=== PATIENT | male | born 1965 | race Caucasian/White ===

== ENCOUNTER 2021-05-26 06:23 | Emergency (ER) | payer SELFPAY ==
--- NOTE | ~2021-05-26 | CT_ITS ---
EXAMINATION: CT FEMUR WITHOUT CONTRAST, RIGHT CLINICAL INFORMATION: Pain. Evaluate quadriceps. COMPARISON: None TECHNIQUE: Contiguous axial CT images of the right femur were obtained without contrast. Multiplanar reformats were provided and reviewed. This CT examination was performed using dose optimization techniques as appropriate, variously including the following: *Automated exposure control *Adjustment of mA and/or kV according to patient size (this includes techniques or standardized protocols for targeted exams where dose is matched to indication/reason for exam; i.e. extremities or head) *Use of iterative reconstruction technique DLP: 453 mGy-cm FINDINGS: Evaluation of the muscles and tendons is somewhat limited on CT examination. There is diffuse irregularity of the distal quadriceps tendon with areas of distal attenuation. Findings are consistent with high-grade partial tearing of the distal quadriceps tendon with a tendon gap measuring up to 2.3 cm in craniocaudal dimension. There is a tiny osseous fragment in this region, which may represent a tiny avulsion. There is mild adjacent soft tissue edema. The patellar tendon appears intact. The more proximal muscles and tendons are grossly intact on CT examination. Mild lateral patellofemoral compartment joint space narrowing with tiny marginal osteophytes. Trace right knee joint effusion. No acute fracture or dislocation. No concerning lytic or blastic osseous lesion. 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 No abnormal soft tissue mass or fluid collection. The visualized vascular structures are grossly unremarkable. The visualized intrapelvic structures are unremarkable. CT/CT femur RT wo con IMPRESSION: Attenuation and irregularity of the distal quadriceps tendon with mild adjacent edema, likely representing a high-grade partial tear measuring up to 2.3 cm in craniocaudal dimension. Evaluation is limited on CT examination, and if there is need for further characterization, right knee MRI could help further evaluate. Mild patellofemoral arthrosis and trace right knee joint effusion.
[2021-05-26 06:29] VITALS: BP 180/90; PULSE 84; O2SAT 98
[2021-05-26 06:33] VITALS: BP 137/82; PULSE 75; RESP 20; O2SAT 98; BMI 34.2
--- NOTE | 2021-05-26 06:35 | ED.LOWEXIN ---
HPI - Extremity Injury (Lower) General Chief Complaint: Extremity Injury, Lower Stated Complaint: knee pain post fall Time Seen by Provider: 05/26/21 06:35 Source: patient Mode of arrival: EMS Limitations: no limitations History of Present Illness MD complaint: leg injury Onset (ago): minute(s) Injury: Right: thigh Type of Injury: hyperflexion Place: street/outdoors Severity: severe Relieving factors: immobilization Exacerbating factors: movement and palpation Context: walking Associated symptoms: snap/pop sensation and swelling Other symptoms: none Related Data Previous Rx's Medication Instructions Recorded cyclobenzaprine 10 mg tablet 10 mg PO TID PRN #14 tab 05/26/21 ibuprofen 600 mg tablet 600 mg PO Q6H PRN #30 tab 05/26/21 Allergies Allergy/AdvReac Type Severity Reaction Status Date / Time No Known Allergies Allergy Verified 05/26/21 06:32 Review of Systems Review of Systems: Constitutional : No Fever, No Chills ENT/Mouth : No Ear Pain, No Hoarseness, No sore throat Eyes: No Eye Pain, No Swelling, No Redness, No Foreign Body Cardiovascular : No Chest Pain, No SOB Respiratory : No Cough, No Dyspnea Gastrointestinal : No Nausea, No Vomiting, No Diarrhea, No abdominal Pain Genitourinary : No Dysuria, No Hematuria Musculoskeletal : positive joint pain, No Myalgias, No Joint Swelling Skin : No Skin lacerations, No rash Neuro : No Weakness, No Numbness, No Loss of Consciousness, No Dizziness, No Headache PMFSH Past Medical History Medical History HTN (hypertension) Social History Social History (Updated 05/26/21 @ 06:35 by Meme Staples DO) Patient Tobacco Use Status: Current everyday Tobacco user Advance Directives: No Advance Directives Information Provided: Yes Physical Exam Vital Signs: Vital Signs: Last Vital Signs Pulse 76 05/26/21 09:09 Resp 16 05/26/21 09:09 BP 137/92 H 05/26/21 09:09 Pulse Ox 98 05/26/21 09:09 BMI result Body Mass Index 34.2 Appearance: Alert. Oriented X3. No acute distress. Eyes: Pupils equal, round and reactive to light. ENT: Pharynx normal. Neck: Normal inspection. Neck supple. CVS: Normal heart rate and rhythm. Pulses normal. Respiratory: No respiratory distress. Breath sounds normal. Abdomen: Soft and non-tender. Skin: Skin warm and dry. Normal skin color. Normal skin turgor. Extremities: RLE 2+ DP and PT pulses intact SILT throughout, quad tendon feels intact and can make a good tense muscle when asked but has pain no knee lig laxity noted. he is very tender over the mid distal femur as well as no large hematoma felt, I cannot feel a defect of the tendon but he is tender at that site Neuro: Oriented X 3. No motor deficit. No sensory deficit. MDM - Extremity Injury (Lower) MDM Narrative Medical decision making narrative: 55 yo male with hx of HTN here with hyperextension injury of RLE otherwise no other traumatic concerns he is NV intact in the RLE - his quadriceps tendon has no large divot on exam but his story is concerning for tear/rupture his knee itself has no internal derangement. At this time most of his pain is mid femur and he felt a pop will obtain CT scan as I suspect mostly tear of his quad muscle/tendon - he is aware he will likely need MRI with PCP - immobilizer and crutches ordered. Declines pain medications Procedures Orthopedic Splinting/Casting Injury #1: Side: right Lower Extremity Injury Location: upper leg Lower Extremity Immobilizer: knee immobilizer Other Orthopedic Equipment: crutches Discharge Plan Discharge Clinical Impression: Injury of quadriceps tendon Patient Disposition: Home, Self-Care Instructions: Crutch Instructions (ED), Tendon Rupture (ED) Additional Instructions: return to ED for any worsening symptoms or concerns YOU WILL NEED MRI SOON POSSIBLE, USE CRUTCHES AND WEAR IMMOBILIZER IMPRESSION: Attenuation and irregularity of the distal quadriceps tendon with mild adjacent edema, likely representing a high-grade partial tear measuring up to 2.3 cm in craniocaudal dimension. Evaluation is limited on CT examination, and if there is need for further characterization, right knee MRI could help further evaluate. ? Mild patellofemoral arthrosis and trace right knee joint effusion. Prescriptions: New cyclobenzaprine 10 mg tablet 10 mg PO TID PRN (Reason: muscle spasm) Qty: 14 0RF ibuprofen 600 mg tablet 600 mg PO Q6H PRN (Reason: pain) Qty: 30 0RF Referrals: Katja Barbosa PA-C [[facility]] - 2 days Interventions: ED Discharge Assessment Last Done: 05/26/21 09:28 Discharge Date/Time: 05/26/21 09:29
--- NOTE | 2021-05-26 06:36 | PC.NURSE ---
at bedside for primary eval.
[2021-05-26 09:09] VITALS: BP 137/92; PULSE 76; RESP 16; O2SAT 98
== END 2021-05-26 09:29 | disposition home or self-care (01) ==
PROVIDERS: Emergency Provider Emergency Medicine
DX: S86.101A Unspecified injury of other muscle(s) and tendon(s) of posterior muscle group at lower leg level, right leg, initial encounter (principal); X50.1XXA Overexertion from prolonged static or awkward postures, initial encounter; Y93.01 Activity, walking, marching and hiking; Y92.480 Sidewalk as the place of occurrence of the external cause; Y99.9 Unspecified external cause status; F17.200 Nicotine dependence, unspecified, uncomplicated
CPT/HCPCS: 73700; 99284